=== PATIENT | male | born 1975 | race Caucasian/White ===

== ENCOUNTER 2017-12-20 10:32 | Day surgery (SDC) | payer OTHER ==
[2017-12-20] MEDS ORDERED: DIPHTH,PERTUSS(ACELL),TET 0.5 ML DISP.SYRIN IM ONE (10:33)
--- NOTE | 2017-12-20 10:34 | PDOC ---
Attending Attestation - Resident Resident Name: Pb Chance - ED Attending Attestation I have performed the following: I have examined & evaluated the patient, The case was reviewed & discussed with the resident, I agree w/resident's findings & plan, Exceptions are as noted - HPI HPI: 12/20/17 10:45 42yo male with no signif pmhx of pshx who is R hand dominant with R 5th digit laceration. Pt works at a coffee shop. Pt cut his hand on a glass coffee pot around 9am today. Tetanus is not utd. Pt with multiple bandaides to R 5th digit - bleeding controlled. Pt unable to flex the digit at the PIP or DIP. Pt with sensation intact and brisk cap refill of the digit. Pt denies all other injuries or complaints. - Physicial Exam PE: 12/20/17 10:47 Gen: aaox3, nad heart: +s1s2 reg Lungs: cta b/l abd: soft, nt/nd +bs ext: R hand with laceration to palmar surface of 5th digit over the PIP, pt unable to flex PIP or DIP, sensation is intact, brisk cap refill distal to injury, no bleeding at laceration site, 1cm laceration with exposed subcutaneous tissue, radial pulse intact - Medical Decision Making 12/20/17 10:33 I, Dr. Mamie Khan, DO, attest that this document has been prepared under my direction and personally reviewed by me in its entirety. I further attest, that it accurately reflects all work, treatment, procedures and medical decision -making performed by me. 12/20/17 10:49 a/p: 42yo male with R hand laceration -will obtain xray given cut on glass -will update tetaus -will wash out and eval for tendon damage, however suspect tendon damage given the lack of ability to flex at the PIP and DIP. -case discussed with Dr. Gaines who states if the patient is transferred to [facility] he will evaluate the finger for tendon laceration. 12/20/17 11:00 xray does not show a foreign body 12/20/17 11:11 no foreign body seen on washout. pt unable to flex at DIP and has minimal movement of flexion at PIP. concern for tendon laceration - however unable to visualize tendon lac. Will transfer to [facility] for hand eval.
--- NOTE | 2017-12-20 10:49 | PDOC ---
History of Present Illness - General Chief Complaint: Injury Stated Complaint: RT 5TH FINGER INJURY Time Seen by Provider: 12/20/17 10:32 - History of Present Illness Initial Comments: The patient is a 42M w/ no reported PMH who is R hand dominate who presents for evaluation for a laceration to his right little finger. The patient states he cut his hand on a broken coffee cup while at work this morning at 0900. Since that time the patient has been unable to flex his PIP or DIP but he has been able to flex his MCP. He denies changes in sensation. Denies recent illness, fevers, or current pain 12/20/17 10:40 Past History - Past Medical History Allergies/Adverse Reactions: Allergies Allergy/AdvReac Type Severity Reaction Status Date / Time No Known Allergies Allergy Verified 12/20/17 10:32 Home Medications: Ambulatory Orders NK [No Known Home Medication] 12/20/17 Review of Systems - Review of Systems Able to Perform ROS?: Yes Comments:: GENERAL/CONSTITUTIONAL: No fever or chills. No weakness HEAD, EYES, EARS, NOSE AND THROAT: No change in vision. No ear pain or discharge. No sore throat CARDIOVASCULAR: No chest pain or shortness of breath RESPIRATORY: No cough, wheezing, or hemoptysis GASTROINTESTINAL: No nausea, vomiting, diarrhea or constipation MUSCULOSKELETAL: per HPI SKIN: per HPI NEUROLOGIC: No headache, vertigo, loss of consciousness, or change in strength/ sensation ENDOCRINE: No increased thirst. No abnormal weight change HEMATOLOGIC/LYMPHATIC: No anemia, easy bleeding, or history of blood clots ALLERGIC/IMMUNOLOGIC: No hives or skin allergy 12/20/17 11:11 Is the patient limited Chilean proficient: No *Physical Exam - Vital Signs Vital Signs Temp Pulse Resp BP Pulse Ox 97.2 F L 87 20 117/72 100 12/20/17 10:32 12/20/17 10:32 12/20/17 10:32 12/20/17 10:32 12/20/17 10:32 12/20/17 11:12 - Physical Exam Comments: GENERAL: Awake, alert, and fully oriented, in no acute distress HEAD: No signs of trauma, normocephalic, atraumatic EYES: PERRL, EOMI, sclera anicteric, conjunctiva clear ENT: Hearing grossly normal, nares patent, Moist mucosa LUNGS: No distress, speaks full sentences, clear to auscultation bilaterally HEART:Regular rate and rhythm, normal S1 and S2, no murmurs appreciated, peripheral pulses normal and equal bilaterally NEUROLOGICAL: Cranial nerves II through XII grossly intact. Normal speech, normal gait, no focal sensorimotor deficits SKIN: 1cm laceration on the palmar surface of his R small finger over his PIP with likely tendon involvement RUE: Inspection: 1cm laceration on the palmar surface of his R small finger over his PIP with likely tendon involvement. Inability to flex DIP, reduced ability to flex PIP. Flexion intact at MCP. Compartments soft and compressible, pain within proportion, no pain to passive stretch Sensation: sensation present to light touch m/r/u n Motor: 5/5 Wrist flex/ext; 5/5 Elbow flex/ext; 5/5 Shoulder ABd,Flex Vascular: 2+ radial pulse palpated, BCR all fingers <2 sec. LUE: Inspection: No erythema or ecchymosis. No tenderness, no obvious abnormalities, no open wounds. Compartments soft and compressible, pain within proportion, no pain to passive stretch Sensation: sensation present to light touch m/r/u n Motor: intact AIN/PIN/Ulnar in hand; 5/5 Wrist flex/ext; 5/5 Elbow flex/ext; 5/ 5 Shoulder ABd,Flex Vascular: 2+ radial pulse palpated, BCR all fingers <2 sec. 12/20/17 11:12 ED Treatment Course - RADIOLOGY Radiology Studies Ordered: Category Date Time Status HAND- RIGHT [RAD] Stat Radiology 12/20/17 10:33 Ordered Medical Decision Making - Medical Decision Making The patient is a 42M w/ no reported PMH who presents for evaluation of a 1cm laceration on the palmar surface of his R small finger over his PIP with likely tendon involvement Plan to XR hand for foreign body -XR w/o evidence of foreign body Wound irrigated with saline and betadine, approximately 100cc under pressure. No foreign object observed. -Wound dressed with 2 2x2 and gauze wrap Plan for transfer to [facility] for evaluation by Hand Surgery Plan discussed w/ patient who is in agreement, verbalized understanding, and consented for transfer Dispo: Transfer 12/20/17 10:49 *DC/Admit/Observation/Transfer Diagnosis at time of Disposition: Hand laceration Qualifiers: Encounter type: initial encounter Foreign body presence: unspecified Laterality : right Qualified Code(s): S61.411A - Laceration without foreign body of right hand, initial encounter - Discharge Dispostion Disposition: TRANSFER ACUTE CARE/OTHER HOSP Condition at time of disposition: Stable Decision to Admit order: No - Referrals - Patient Instructions - Post Discharge Activity
[2017-12-20 10:58] VITALS: BMI 24.1
--- NOTE | 2017-12-20 13:10 | HP ---
Admitting History and Physical - Admission Chief Complaint: right small finger injury History of Present Illness: 42yo RHD male with no significant PMH who presented with a Right 5th digit laceration. 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 Tetanus is not utd. Pt with multiple bandaides to R 5th digit- bleeding controlled. Pt unable to flex the digit at the PIP or DIP. Pt with sensation intact and brisk cap refill of the digit. Pt denies all other injuries or complaints. We were asked to assess History Source: Patient, Medical Record Limitations to Obtaining History: No Limitations - Smoking History Smoking history: Current every day smoker Have you smoked in the past 12 months: Yes Aproximately how many cigarettes per day: 6 - Alcohol/Substance Use Hx Alcohol Use: No Home Medications - Allergies Allergies/Adverse Reactions: Allergies Allergy/AdvReac Type Severity Reaction Status Date / Time No Known Allergies Allergy Verified 12/20/17 10:32 - Home Medications Home Medications: Ambulatory Orders NK [No Known Home Medication] 12/20/17 Review of Systems - Review of Systems Constitutional: denies: Chills, Fever Eyes: denies: Blind Spots, Recent Change in Vision HENT: denies: Difficult Swallowing, Throat Pain Neck: denies: Decreased ROM, Tenderness Cardiovascular: denies: Chest Pain, Palpitations Respiratory: denies: Cough, SOB Gastrointestinal: denies: Abdominal Pain, Bloating, Constipation, Diarrhea Genitourinary: denies: Burning, Discharge, Dysuria Breasts: reports: No Symptoms Reported. denies: Pain Integumentary: denies: Lesions, Lump, Rash Endocrine: denies: Unexplained Weight Gain, Unexplained Weight Loss Hematology/Lymphatic: denies: Easily Bruised, Excessive Bleeding Psychiatric: denies: Anxiety, Depression Physical Examination Vital Signs: Vital Signs Temperature 98 F 12/20/17 11:31 Pulse Rate 83 12/20/17 11:31 Respiratory Rate 20 12/20/17 11:31 Blood Pressure 99/68 12/20/17 11:31 O2 Sat by Pulse Oximetry (%) 100 12/20/17 10:32 Constitutional: Yes: Well Nourished, No Distress, Calm Eyes: Yes: Conjunctiva Clear, EOM Intact HENT: Yes: Atraumatic, Normocephalic Neck: Yes: Supple, Trachea Midline Cardiovascular: Yes: Regular Rate and Rhythm, S1, S2 Respiratory: Yes: Regular, CTA Bilaterally Gastrointestinal: Yes: Normal Bowel Sounds, Soft. No: Tenderness ...Rectal Exam: Yes: Deferred Renal/: No: CVA Tenderness - Left, CVA Tenderness - Right Breast(s): No: Nipple Inversion, Skin Changes Musculoskeletal: Yes: Muscle Weakness (right small finger flexion). No: Muscle Pain Extremities: Yes: Other (no active flexsion of DIP and PIP right 5th digit). No : Cool, Cyanosis Edema: No Peripheral Pulses WNL: Yes Peripheral Pulses: Left Radial: 2+, Right Radial: 2+, Left Doralis Pedis: 2+, Right Dorsalis Pedis: 2+ Integumentary: No: Jaundice, Rash, Tenting Wound/Incision: Yes: Clean/Dry, Well Approximated, Dressing Dry and Intact Neurological: Yes: Alert, Oriented Psychiatric: Yes: Alert, Oriented Imaging - Results X-ray: Report Reviewed, Image Reviewed (no fracture of dislocation seen) Problem List - Problems (1) Laceration of flexor muscle, fascia and tendon of right little finger at forearm level, initial encounter Assessment/Plan: 42yo male with laceration of FDP right small finger zone 2 NPO and IVF hydration IV antibiotics Repair of right small finger flexor tendon zone 2 Discussed with patient risks, benefits and alternatives of aforementioned procedure, including but not limited to bleeding, infection, injury to adjacent structures, loss of function, scars, need for further procedures, ; alternatives include antibiotics, delayed or no surgery - risks of this include failure of nonoperative therapy, recurrence, . Patient desires to proceed with operation - will take to OR for above. Informed consent signed for same. Code(s): S56.127A - LACERAT FLXR MUSC/FASC/TEND R LITTLE FNGR AT FORARM LV, INIT (2) Finger laceration involving tendon Code(s): S61.219A - LACERATION W/O FB OF UNSP FINGER W/O DAMAGE TO NAIL, INIT Qualifiers: Encounter type: initial encounter Qualified Code(s): S61.219A - Laceration without foreign body of unspecified finger without damage to nail, initial encounter (3) Laceration of finger of right hand Code(s): S61.219A - LACERATION W/O FB OF UNSP FINGER W/O DAMAGE TO NAIL, INIT Qualifiers: Encounter type: initial encounter Finger: little finger Damage to nail status: without damage Foreign body presence: unspecified Qualified Code(s) : S61.216A - Laceration without foreign body of right little finger without damage to nail, initial encounter (4) Flexor tendon laceration, finger, open wound Code(s): S56.129A - LACERAT FLEXOR MUSC/FASC/TEND UNSP FINGER AT FORARM LV, INIT ; S61.209A - UNSP OPEN WOUND OF UNSP FINGER W/O DAMAGE TO NAIL, INIT Qualifiers: Encounter type: initial encounter Qualified Code(s): S56.129A - Laceration of flexor muscle, fascia and tendon of unspecified finger at forearm level, initial encounter; S61.209A - Unspecified open wound of unspecified finger without damage to nail, initial encounter (5) Contact with sharp glass, initial encounter Code(s): W25.XXXA - CONTACT WITH [facility], INITIAL ENCOUNTER
--- NOTE | 2017-12-20 13:12 | OP ---
Operative Note - Note: Operative Date: 12/20/17 Pre-Operative Diagnosis: Right small finger zone 2 flexor tendon laceration Operation: righ small finger flexor tendon repair Findings: 100% laceration zone 2 Flexor digitorum profundus tendon, modified badillo, TP 250mmHg, TT 37min Post-Operative Diagnosis: Same as Pre-op Surgeon: Kenroy Gaines Anesthesiologist/OPERATIONS DEVELOPER: Jeffry Calle Anesthesia: General, Local Estimated Blood Loss (mls): 1 Fluid Volume Replaced (mls): 600 Operative Report Dictated: Yes
--- NOTE | 2017-12-20 13:24 | DS ---
Physical Examination Vital Signs: Vital Signs Temperature 98 F 12/20/17 11:31 Pulse Rate 83 12/20/17 11:31 Respiratory Rate 20 12/20/17 11:31 Blood Pressure 99/68 12/20/17 11:31 O2 Sat by Pulse Oximetry (%) 100 12/20/17 10:32 Findings/Remarks: stable postoperatively. tolerating diet and voiding Constitutional: Yes: Well Nourished, No Distress, Calm Eyes: Yes: Conjunctiva Clear, EOM Intact HENT: Yes: Atraumatic, Normocephalic Neck: Yes: Supple, Trachea Midline Cardiovascular: Yes: Regular Rate and Rhythm, S1, S2 Respiratory: Yes: Regular, CTA Bilaterally Gastrointestinal: Yes: Normal Bowel Sounds, Soft. No: Tenderness ...Rectal Exam: Yes: Deferred Renal/: No: CVA Tenderness - Left, CVA Tenderness - Right Musculoskeletal: No: Muscle Pain, Muscle Weakness Extremities: No: Cool, Cyanosis Edema: Yes Peripheral Pulses WNL: No Peripheral Pulses: Left Radial: 2+, Right Radial: 2+, Left Doralis Pedis: 2+, Right Dorsalis Pedis: 2+ Integumentary: No: Jaundice, Petechiae, Rash Wound/Incision: Yes: Clean/Dry, Well Approximated, Dressing Dry and Intact Neurological: Yes: Alert, Oriented Psychiatric: Yes: Alert, Oriented Discharge Summary Reason For Visit: RT 5TH FINGER INJURY Current Active Problems Hand laceration (Acute) Procedures: Principal: Repair of right small finger flexor tendon zone 2 Hospital Course: admitted for urgent surgery. uneventful procedure. Stable for discharge home Condition: Improved - Instructions Diet, Activity, Other Instructions: Postoperative instructions: You had a repair of right small finger flexor tendon on 12/20/[address] Kenroy Gaines of [facility]. Activity: Resume your usual activities gradually, but no heavy exertion or lifting more than 10-15 pounds for 4-6 weeks. Please keep right dorsal blocking splint intact clean and dry. ELEVATE THE RIGHT ARM ABOVE HEART LEVEL FOR 48hours. Eat lightly at first, but advance to your usual diet as tolerated. Pain: For pain, you may use and alternate Tylenol (acetaminophen) 1-2 pills and/ or ibuprofen 200 mg (1-3 pills) every 6 hours each as needed; this means that you can take one OR the other at 3-hour intervals. If you are prescribed a Tylenol/narcotic combination for severe pain, use it instead of plain Tylenol as needed and switch back when your pain starts decreasing. Do not take more than 4000 mg of acetaminophen in a day. Take medications as prescribed or indicated on the labeling. Follow-up: Call Dr. Gaines' office at [phone] to make your postop appointment (Wednesday in approximately 2 weeks after surgery as advised). Clinic is held in the Diagnostic Center on the first floor of [facility]. Call the office if you have: * increasing pain not responsive to pain medication * fever of 101F or higher * unusual or increasing bleeding or drainage from wounds * increasing redness or swelling at wound sites Also, see your primary medical doctor within 1-2 weeks. Disposition: HOME - Home Medications Comprehensive Discharge Medication List: Ambulatory Orders NK [No Known Home Medication] 12/20/17
[2017-12-20 13:44] LABS: BASO % 0.7 % (0-2.0); EOS % 0.5 % (0-4.5); HEMATOCRIT 46.6 % (35.4-49); HEMOGLOBIN 15.5 GM/dL (11.7-16.9); LYMPH % 18.5 % (8-40); MCHC 33.4 g/dl (32.0-35.9); MEAN CELL VOLUME 89.8 fl (80-96); MEAN PLT VOLUME 8.9 fl (7.5-11.1); MONO % 4.5 % (3.8-10.2); NEUT % 75.8 % (42.8-82.8); PLATELET COUNT 210 K/MM3 (134-434); RBC 5.19 M/mm3 (4.00-5.60); RDW 14.5 % (11.9-15.9); WHITE BLOOD COUNT 8.4 K/mm3 (4.0-10.0)
--- NOTE | 2017-12-20 13:45 | PDOC ---
*Physical Exam - Vital Signs Last Vital Signs Temp Pulse Resp BP Pulse Ox 98 F 83 20 99/68 100 12/20/17 11:31 12/20/17 11:31 12/20/17 11:31 12/20/17 11:31 12/20/17 10:32 - Physical Exam Comments: 12/20/17 13:44 awake alert lungs clear bilaterally heart rrr no mrg. abd soft nt nd. skin warm and dry. right hand dressing in place. no blood on dressing. ED Treatment Course - LABORATORY CBC & Chemistry Diagram: 12/20/17 13:25 12/20/17 13:25 - Medications Given in the ED: ED Medications Discontinued Medications Generic Name Dose Route Start Last Admin Trade Name Freq PRN Reason Stop Dose Admin Diphtheria/Tetanus/Acell Pertussis 0.5 ml 12/20/17 10:33 12/20/17 10:45 Boostrix - IM 12/20/17 10:34 0.5 ml .ONCE ONE Administration Medical Decision Making - Medical Decision Making 12/20/17 13:44 42 yo male wit no pmhx here s/p laceration to right small finger. cut on piece of glass while trying to fix a machine. concern for flexor tendon injury. plan admit for or under dr lewis. d/w dr. milner. labs drawn and penidng. preop ekg. *DC/Admit/Observation/Transfer Diagnosis at time of Disposition: Hand laceration Qualifiers: Encounter type: initial encounter Foreign body presence: unspecified Laterality : right Qualified Code(s): S61.411A - Laceration without foreign body of right hand, initial encounter - Discharge Dispostion Disposition: TRANSFER ACUTE CARE/OTHER HOSP Condition at time of disposition: Stable Decision to Admit order: Yes Decision to Admit order Date/Time: Decision to Admit Order Category Date Time Status Decision to Admit to Hospital Routine Admission 12/20/17 13:43 Ordered - Referrals - Patient Instructions - Post Discharge Activity
[2017-12-20 14:03] LABS: INR 1.07 (0.83-1.09); PROTHROMBIN TIME (PATIENT) 12.6 SEC (9.7-13.0)
[2017-12-20 14:05] LABS: ACTIVATED PTT 29.7 SECONDS (25.2-36.5)
[2017-12-20 14:28] LABS: ALBUMIN 4.1 g/dl (3.4-5.0); ALK PHOS 91 U/L (45-117); ANION GAP 5 MMOL/L (8-16); BILIRUBIN,TOTAL 0.5 mg/dL (0.2-1); BLOOD UREA NITROGEN 18 mg/dL (7-18); CALCIUM 9.4 mg/dL (8.5-10.1); CHLORIDE 107 mmol/L (98-107); CO2 28 mmol/L (21-32); CREATININE 0.7 mg/dL (0.55-1.3); GLUCOSE,RANDOM 84 mg/dL (74-106); POTASSIUM 4.4 mmol/L (3.5-5.1); SGOT/AST 26 U/L (15-37); SGPT/ALT 48 U/L (13-61); SODIUM 140 mmol/L (136-145); TOT PROT 7.5 g/dl (6.4-8.2)
[2017-12-20] MEDS ORDERED: ONDANSETRON 4 MG/2 ML VIAL IVPUSH PRN (19:29)
[2017-12-20] MEDS ORDERED: oxyCODONE HCL 5 MG TABLET PO PRN (19:29)
[2017-12-20] MEDS ORDERED: LACTATED RINGERS SOLUTION 1,000 ML IV SCH (19:30)
[2017-12-20] MEDS ORDERED: MIDAZOLAM HCL 2 MG/2 ML SINGLE DOSE VIAL ONE (19:36)
[2017-12-20] MEDS ORDERED: LIDOCAINE HCL/PF 2% SDV 5ML VIAL ONE (19:36)
[2017-12-20] MEDS ORDERED: DEXAMETHASONE SOD PHOSPHATE 4 MG/1 ML VIAL ONE (19:36)
[2017-12-20] MEDS ORDERED: PROPOFOL 20 ML ONE ×2 (19:49→20:02)
[2017-12-20] MEDS ORDERED: BUPIVACAINE HCL/PF 0.5% (5MG/ML) 10 ML VIAL ONE (19:51)
[2017-12-20] MEDS ORDERED: ceFAZolin SODIUM 1 GM VIAL IVPB ONE (19:58)
[2017-12-20] MEDS ORDERED: ceFAZolin SODIUM 1 GM VIAL ONE (20:00)
[2017-12-20] MEDS ORDERED: LIDOCAINE HCL 1%, 10 MG/ML (20ML VIAL) ONE (20:01)
[2017-12-20] MEDS ORDERED: ACETAMINOPHEN INJECTION 100 ML IVPB ONE (21:03)
[2017-12-20] MEDS ORDERED: KETOROLAC TROMETHAMINE 30 MG/1 ML VIAL IVPUSH ONE (21:04)
[2017-12-20] MEDS ORDERED: ACETAMINOPHEN 1000 MG/100 ML VIAL (NON FORMULARY) IVPB ONE (21:25)
[2017-12-20] MEDS ORDERED: KETOROLAC TROMETHAMINE 30 MG/1 ML VIAL ONE (21:29)
[2017-12-20 21:41] VITALS: TEMP 97.7
[2017-12-20 22:09] VITALS: BP 118/71; PULSE 68
--- NOTE | 2017-12-21 16:12 | EKG ---
Test Reason : Blood Pressure : / mmHG Vent. Rate : 074 BPM Atrial Rate : 074 BPM P-R Int : 154 ms QRS Dur : 082 ms QT Int : 392 ms P-R-T Axes : 061 039 022 degrees QTc Int : 435 ms NORMAL SINUS RHYTHM NORMAL ECG NO PREVIOUS ECGS AVAILABLE Confirmed by MD PHU, TEE ([id number]) on 12/21/2017 4:11:49 PM Referred By: Confirmed By:TEE BAY MD
--- NOTE | 2017-12-21 19:07 | OP ---
DATE OF OPERATION: DATE OF DICTATION: 12/21/2017 PREOPERATIVE DIAGNOSIS: Right small finger zone 2 flexor tendon laceration. POSTOPERATIVE DIAGNOSIS: Right small finger zone 2 flexor tendon laceration. PROCEDURE: Right small finger flexor tendon repair, extensor digitorum profundus tendon zone 2. ATTENDING SURGEON: Kenroy Gaines MD ASSISTANT PROFESSOR OF GEOGRAPHY: Jeffry Calle MD ANESTHESIA: General with local. Local consisted of 0.5% Marcaine a total of 10 mL given in an area block fashion. ESTIMATED BLOOD LOSS: 1 mL. IV FLUID ADMINISTERED: 600 mL. TOURNIQUET PRESSURE: 250 mmHg. TOURNIQUET TIME: 37 minutes. IMPLANTS: None. INDICATION: The patient is presenting with a history of zone 2 tendon laceration sustained while fixing a coffee pot at work. He was counseled regarding risks, benefits, and alternatives to surgical repair. He signed informed consent was taken to the procedure. DESCRIPTION OF PROCEDURE: The patient was brought to the operating room and was placed in supine position on the operating room table with the right arm extended at 90 degrees perpendicular by his midline axis. The right hand was prepped and draped into a standard surgical field. We proceeded first with the lower extremity SCDs, which were placed as he received intravenous antibiotics with general anesthesia was endotracheally intubated at which point we proceeded with a formal time-out identifying the operative site and procedure. The small finger on the volar aspect had a sustained laceration zone 2 ulnar aspect. It was 2 cm and irregular along the ulnar volar border adjacent to the proximal interphalangeal joint. We proceeded first with a Alistair incision, which excluded the previous laceration described. After the arm was exsanguinated, it was incised with a 15-blade scalpel, deepened and widened through subcutaneous tissue. Care was taken to protect the neurovascular bundle for the small finger away from harm's way. The midline flexor retinaculum was explored. There appeared to be an A2 and A3 ailyn injury. These pulleys were then opened from the ulnar aspect towards the radial in preparation to have them repaired in the future. The distal aspect of the flexor digitorum profundus tendon was identified, and it appeared to be tubular. The proximal aspect was explored via an additional Alistair incision, which allowed for opening the first annular ailyn and exploring the palm. The FDP was retracted through and through the A2 ailyn and the opened A3 ailyn and then repaired using a modified Askew 2-0 Ethibond stitch as a core repair tying the knot in the center after reducing the ends together. The epitendinous repair was completed with a 6-0 Prolene in running fashion. This was done circumferentially around the FDP repair. After complete, the site was irrigated. The flexor digitorum superficialis tendon was then debrided back to be out of the retinaculum, and the A3 ailyn was then repaired using 6-0 Prolene as well. The skin was cleaned. The Alistair incision was approximated using 4-0 nylon interrupted fashion along the length. The normal resting tenodesis was restored to the right hand including the small finger. The patient was then splinted and a radial gutter protective extension block splint. He was given instructions to follow up in a period of 1 week for transition to a splint. He was given instructions to follow up in a period of 2 weeks. He was provided with antibiotics as well as pain medication. MD DAPHNEY Bravo/[id number]
== END 2017-12-20 23:00 | disposition home or self-care (01) ==
LOC: FER 10:32 → JASUSAT 22:32
CPT/HCPCS: 36415; 71046-TC-FY; 73130-TC-RT-FY; 80053; 85025; 85610; 85730; 86850; 86900; 86901; 90715; 93005; 94760; 99283-25; J0131